=== PATIENT | female | born 1960 | race Caucasian/White ===

== ENCOUNTER 2021-03-08 16:30 | Emergency (ER) | payer MEDICARE ==
[~2021-03-08] VITALS: Ht 160 cm; Wt 52.2 kg
[2021-03-08 16:47] VITALS: BP 126/65
--- NOTE | 2021-03-08 17:05 | NUR ---
PT SEEN AND EXAMINED BY ANA LUISA GORDON.
[2021-03-08] MEDS ORDERED: ACETAMINOPHEN ES 500 MG TABLET ONE (17:22)
[2021-03-08] MEDS ORDERED: ACETAMINOPHEN ES 500 MG TABLET PO ONE (17:30)
[2021-03-08] MEDS ORDERED: ACET-2605 PO (18:03)
--- NOTE | 2021-03-08 18:10 | NUR ---
ORTHO SHOES PROVIDED.
--- NOTE | 2021-03-08 18:14 | NUR ---
Patient discharged to home in stable condition. Written and verbal after care instructions given. Patient verbalizes understanding of instruction.
== END 2021-03-08 18:14 | disposition home or self-care (01) ==
LOC: ER 16:46
DX: M21.611 Bunion of right foot (principal); M79.671 Pain in right foot; F10.10 Alcohol abuse, uncomplicated; F17.200 Nicotine dependence, unspecified, uncomplicated; Y90.9 Presence of alcohol in blood, level not specified; Z87.440 Personal history of urinary (tract) infections; Z60.2 Problems related to living alone; Z79.899 Other long term (current) drug therapy
CPT/HCPCS: 73630-TC

== ENCOUNTER 2023-04-05 19:32 | Emergency (ER) | payer MEDICARE ==
[~2023-04-05] VITALS: Ht 160 cm; Wt 54.4 kg
[~2023-04-05 19:32] MED LIST: ACET-2605 PO
[2023-04-05] MEDS ORDERED: IBUP-1953 PO (21:11)
[2023-04-05 21:21] VITALS: BP 141/84; TEMP 98.9; O2SAT 99
== END 2023-04-05 21:22 | disposition home or self-care (01) ==
LOC: ER 19:34
DX: S93.402A Sprain of unspecified ligament of left ankle, initial encounter (principal); F17.200 Nicotine dependence, unspecified, uncomplicated; Z87.440 Personal history of urinary (tract) infections; Z60.2 Problems related to living alone; X50.1XXA Overexertion from prolonged static or awkward postures, initial encounter; Y93.89 Activity, other specified; Y92.89 Other specified places as the place of occurrence of the external cause; Y99.8 Other external cause status
CPT/HCPCS: 73610-TC

== ENCOUNTER 2023-07-11 17:24 | Emergency (ER) | payer MEDICARE ==
[~2023-07-11] VITALS: Ht 160 cm; Wt 54.4 kg
[~2023-07-11 17:24] MED LIST changes: +IBUP-1953 PO
[2023-07-11 17:34] VITALS: BP 166/96; TEMP 98
[2023-07-11] MEDS ORDERED: LIDOCAINE 2% 20 ML MDV ONE (17:54)
[2023-07-11] MEDS ORDERED: LIDOCAINE 0.5% HCL 50 ML VIAL IJ ONE (18:00)
[2023-07-11] MEDS ORDERED: TDAP [DIPH/PERTUSSIS/TET] 0.5 ML VIAL IM ONE ×2 (18:30→18:57)
[2023-07-11] MEDS ORDERED: AMOX-430 PO (18:34)
[2023-07-11 19:03] VITALS: O2SAT 100
== END 2023-07-11 19:04 | disposition home or self-care (01) ==
LOC: ER 17:24
DX: S61.432A Puncture wound without foreign body of left hand, initial encounter (principal); F17.200 Nicotine dependence, unspecified, uncomplicated; Z87.440 Personal history of urinary (tract) infections; Z79.899 Other long term (current) drug therapy; Z60.2 Problems related to living alone; W55.01XA Bitten by cat, initial encounter; Y93.89 Activity, other specified; Y92.89 Other specified places as the place of occurrence of the external cause; Y99.8 Other external cause status
CPT/HCPCS: 99283; 10060; 90471; 90715; J3490

== ENCOUNTER 2024-05-09 15:35 | Emergency (ER) | payer MEDICARE ==
[~2024-05-09] VITALS: Ht 157.5 cm; Wt 45.4 kg
[~2024-05-09 15:35] MED LIST changes: +AMOX-430 PO
[2024-05-09 15:44] VITALS: BP 129/80; TEMP 99.2
[2024-05-09] MEDS ORDERED: IBUPROFEN 600 MG TABLET ONE (16:37)
[2024-05-09] MEDS: IBUPROFEN 600 MG TABLET PO ONE (16:39)
[2024-05-09 17:49] VITALS: O2SAT 98
== END 2024-05-09 17:51 | disposition home or self-care (01) ==
LOC: ER 15:42
DX: M25.522 Pain in left elbow (principal); F17.200 Nicotine dependence, unspecified, uncomplicated; Z87.440 Personal history of urinary (tract) infections; Z79.899 Other long term (current) drug therapy; Z88.7 Allergy status to serum and vaccine
CPT/HCPCS: 73080-TC; 73502